=== PATIENT | female | born 1960 | race Caucasian/White ===

== ENCOUNTER 2021-06-11 12:08 | Observation (INO) ==
[2021-06-11] MEDS ORDERED: Isovue-370 500 ML BOTTLE IVP ONE (15:01)
[2021-06-11 15:42] LABS: Basophils # 0.1 K/mcL (0.0-0.2); Basophils % 0.6 %; Eosinophils # 0.3 K/mcL (0.0-0.6); Eosinophils % 2.5 %; Hematocrit 46.3 % (35.3-44.9); Hemoglobin 15.7 g/dL (11.5-15.4); Immature Granulocytes % 0.2 % (0-4); Lymphocytes # 2.8 K/mcL (0.6-4.6); Lymphocytes % 27.2 %; Mean Corpuscular HGB Conc 33.9 g/dL (31.6-35.5); Mean Corpuscular Hemoglobin 32.9 pg (28.0-33.3); Mean Corpuscular Volume 97.1 fL (83.0-100.0); Mean Platelet Volume 10.1 fL (9.4-12.4); Monocytes # 0.6 K/mcL (0.0-1.3); Monocytes % 5.8 %; Neutrophils # 6.5 K/mcL (1.6-8.9); Platelet Count 230 K/mcL (140-400); Red Blood Count 4.77 M/mcL (3.82-4.97); Red Cell Distribution Width 13.3 % (11.5-14.5); Segmented Neutrophils % 63.7 %; White Blood Count 10.1 K/mcL (4.3-11.1)
[2021-06-11 16:01] LABS: BUN/Creatinine Ratio 16 (6-26); Blood Urea Nitrogen 11 mg/dL (8-23); C-Reactive Protein < 5 mg/L (Less than 10); Calcium 9.8 mg/dL (8.6-10.3); Carbon Dioxide 27 mEq/L (23-29); Chloride 103 mEq/L (98-107); Glucose 95 mg/dL (70-105); Osmolality,Calculated 283 (280-300); Potassium 3.9 mEq/L (3.5-5.1); Sodium 137 mEq/L (136-145); eGFR For African Americans > 60 (> 60); eGFR For Non-African Americans > 60 (> 60)
[2021-06-11] MEDS ORDERED: cefTRIAXone 1,000 MG in 0.9 % Sodium Chloride Mini Bag 100 ML IVPB ONE (17:23)
[2021-06-11] MEDS ORDERED: Clindamycin 600 MG/50 ML 600 MG/50 ML IV.SOLN IVPB SCH (17:35)
[2021-06-11] MEDS ORDERED: Naloxone 0.4 MG/ML INJ IVP PRN (18:32)
[2021-06-11] MEDS ORDERED: Ondansetron 4 MG/2 ML VIAL IVP PRN (18:32)
[2021-06-11] MEDS ORDERED: *HR* FentaNYL (PF) 100 MCG/2 ML VIAL IVP ONE (19:04)
[2021-06-11] MEDS ORDERED: *HR* FentaNYL (PF) 100 MCG/2 ML VIAL ONE (19:09)
[2021-06-11] MEDS: 0.9 % Sodium Chloride 1,000 ML IVC SCH (19:11)
[2021-06-11] MEDS: Vancomycin 1,250 MG/262.5 ML IV.SOLN IVPB SCH (20:56)
[2021-06-12] MEDS ORDERED: *HR* Dextrose 50 % in Water (Syg) 50 ML SYRINGE IVP PRN (02:32)
[2021-06-12] MEDS ORDERED: Dextrose Gel 15 GM/37.5 ML TUBE PO PRN ×2 (02:32)
[2021-06-12] MEDS ORDERED: D5% in Water 1,000 ML IVC PRN (02:32)
[2021-06-12 06:21] LABS: Basophils % 0.3 %; Hematocrit 44.7 % (35.3-44.9); Hemoglobin 14.9 g/dL (11.5-15.4); Immature Granulocytes % 0.1 % (0-4); Lymphocytes # 0.9 K/mcL (0.6-4.6); Lymphocytes % 13.1 %; Mean Corpuscular HGB Conc 33.3 g/dL (31.6-35.5); Mean Corpuscular Volume 95.9 fL (83.0-100.0); Mean Platelet Volume 10.6 fL (9.4-12.4); Monocytes # 0.1 K/mcL (0.0-1.3); Monocytes % 0.9 %; Platelet Count 242 K/mcL (140-400); Red Blood Count 4.66 M/mcL (3.82-4.97); Red Cell Distribution Width 13.3 % (11.5-14.5); Segmented Neutrophils % 85.6 %
[2021-06-12] MEDS: *HR* Heparin 5,000 UNIT/ML VIAL SQ SCH ×2 (06:22→17:41)
[2021-06-12] MEDS ORDERED: Acetaminophen 325 MG TABLET PO PRN (06:28)
[2021-06-12] MEDS ORDERED: Acetaminophen IV 500 MG/50 ML BAG IVPB ONE (06:37)
[2021-06-12 06:47] LABS: BUN/Creatinine Ratio 18 (6-26); Blood Urea Nitrogen 12 mg/dL (8-23); Calcium 9.4 mg/dL (8.6-10.3); Carbon Dioxide 24 mEq/L (23-29); Chloride 106 mEq/L (98-107); Glucose 185 mg/dL (70-105); Osmolality,Calculated 289 (280-300); Potassium 3.9 mEq/L (3.5-5.1); Sodium 137 mEq/L (136-145); eGFR For African Americans > 60 (> 60); eGFR For Non-African Americans > 60 (> 60)
[2021-06-12] MEDS ORDERED: Insulin LISPRO 300 UNITS/3 ML VIAL SUBQ SCH ×3 (08:00→21:00)
[2021-06-12] MEDS: Vancomycin 1,250 MG/262.5 ML IV.SOLN IVPB SCH (08:32)
[2021-06-12] MEDS ORDERED: cefTRIAXone 1,000 MG in Water for inj. (sterile) 10 ML IVP SCH (09:00)
[2021-06-12] MEDS: Insulin LISPRO 300 UNITS/3 ML VIAL SUBQ SCH ×2 (12:19→17:41)
[2021-06-12] MEDS: 0.9 % Sodium Chloride 1,000 ML IVC SCH (12:19)
[2021-06-12] MEDS: Amoxicillin/Clavulanate 500 MG TABLET PO SCH ×2 (14:04→19:55)
[2021-06-12] MEDS ORDERED: Insulin DETEMIR 100 UNIT/ML X5UNITS SUBQ SCH ×2 (21:00)
[2021-06-13] MEDS: Amoxicillin/Clavulanate 500 MG TABLET PO SCH ×2 (03:34→11:55)
[2021-06-13] MEDS: *HR* Heparin 5,000 UNIT/ML VIAL SQ SCH (05:37)
[2021-06-13 07:50] VITALS: O2SAT 95
[2021-06-13] MEDS: Insulin LISPRO 300 UNITS/3 ML VIAL SUBQ SCH ×2 (08:18→11:55)
[2021-06-13] MEDS ORDERED: dexAMETHasone 4 MG TABLET PO SCH (09:00)
[2021-06-13] MEDS ORDERED: Aspirin Enteric Coated 81 MG Tablet PO SCH (09:00)
[2021-06-13 11:46] VITALS: BP 149/87; PULSE 56; TEMP 98.3
== END 2021-06-13 15:30 | disposition home or self-care (01) ==
LOC: 3NENU 12:08 → EMEROOARM 12:08 → SUATTDRO 18:32 → 3NENU 19:40
PROVIDERS: ADMIT Family Medicine; ATTEND Internal Medicine